=== PATIENT | female | born 1995 | race African-American/Black ===

== ENCOUNTER 2017-06-08 13:10 | Emergency (ER) | payer OTHER ==
[~2017-06-08] VITALS: Ht 165.1 cm; Wt 120.5 kg
[~2017-06-08 13:10] MED LIST: BACTRIM,SEPT1 TABLET PO; CONCERTA18 MG PO; CONCERTA27 MG PO; DEPO-PROVER150 MG/ML IM; DEPO-PROVERA; HYDROCHLOROTH12.5 M3 PO; MOTRIN400 MG PO; NAPROSYN500 MG PO
[2017-06-08 14:37] LABS: ADD MIUA? YES; BILIRUBIN NEGATIVE; BLOOD NEGATIVE; COLOR YELLOW ((YELLOW)); GLUCOSE (STRIP) NEGATIVE; KETONES NEGATIVE; LEUKOCYTES NEGATIVE; NITRITE NEGATIVE; PROTEIN (STRIP) NEGATIVE
[2017-06-08 14:59] LABS: BACTERIA NONE SEEN /HPF; EPITHELIAL CELLS RARE /HPF; MUCUS NONE SEEN /LPF; RED BLOOD CELLS 0-5 /HPF (0-5); UCUL ADDED? NO; WHITE BLOOD CELLS 0-5 /HPF (0-5)
[2017-06-08 14:59] LABS: HEMATOCRIT 37.3 % (36.0-46.0); MCH 27.9 PG (29.0-34.0); MCHC 32.4 G/DL (30.0-36.0); MCV 86.1 FL (83-99); MEAN PLAT.VOLUME 11.2 uM^3 (9.5-12.4); PLATELET COUNT 274 K/uL (156-360); RBC DIS.WIDTH-CV 12.1 % (11.8-14.6); RBC DIS.WIDTH-SD 38.1 % (39-53); RED BLOOD COUNT 4.33 M/uL (3.80-5.20); WHITE BLOOD COUNT 8.2 K/uL (4.1-10.2)
[2017-06-08 15:05] LABS: CHLORIDE 109 mEq/L (99-109); POTASSIUM 3.6 mEq/L (3.7-5.4); SODIUM 142 mEq/L (136-147)
[2017-06-08 15:08] LABS: GLUCOSE 82 mg/dL (70-99)
[2017-06-08 15:09] LABS: ANION GAP 11 MEQ/L (2-14)
[2017-06-08 15:10] LABS: TOTAL BILIRUBIN 0.4 mg/dL (0.0-1.0)
[2017-06-08 15:11] LABS: ALKALINE PHOSPHATASE 79 IU/L (3-129); GFR ESTIMATE (CALCULATED) > 59 mL/min/
[2017-06-08 15:12] LABS: UREA NITROGEN (BUN) 8 mg/dL (9-23)
[2017-06-08 15:22] LABS: QUANTITATIVE HCG < 4.0 MIU/ML
[2017-06-08] MEDS ORDERED: MIRALAX119 GM PO (16:58)
[2017-06-08] MEDS ORDERED: NEXIUM40 MG PO (16:58)
[2017-06-08] MEDS ORDERED: ZOFRAN ODT4 MG PO (16:58)
[2017-06-08 17:06] VITALS: BP 113/80
== END 2017-06-08 17:13 | disposition home or self-care (01) ==
LOC: EME 13:10
DX: K21.9 Gastro-esophageal reflux disease without esophagitis (principal); K59.00 Constipation, unspecified; N91.2 Amenorrhea, unspecified; R11.2 Nausea with vomiting, unspecified; F17.200 Nicotine dependence, unspecified, uncomplicated
CPT/HCPCS: 80053; 81003; 84702; 85027; 99281; 99284

== ENCOUNTER 2017-06-30 08:13 | Emergency (ER) | payer OTHER ==
[~2017-06-30] VITALS: Ht 165.1 cm; Wt 121.3 kg
[~2017-06-30 08:13] MED LIST changes: +MIRALAX119 GM PO; +NEXIUM40 MG PO; +ZOFRAN ODT4 MG PO
[2017-06-30 09:07] LABS: HEMATOCRIT 38.5 % (36.0-46.0); MCH 28.3 PG (29.0-34.0); MCHC 32.7 G/DL (30.0-36.0); MCV 86.5 FL (83-99); MEAN PLAT.VOLUME 11.1 uM^3 (9.5-12.4); PLATELET COUNT 282 K/uL (156-360); RBC DIS.WIDTH-CV 11.9 % (11.8-14.6); RBC DIS.WIDTH-SD 38.3 % (39-53); RED BLOOD COUNT 4.45 M/uL (3.80-5.20); WHITE BLOOD COUNT 7.1 K/uL (4.1-10.2)
[2017-06-30 09:15] LABS: CHLORIDE 109 mEq/L (99-109); SODIUM 140 mEq/L (136-147)
[2017-06-30 09:19] LABS: ANION GAP 7 MEQ/L (2-14)
[2017-06-30 09:20] LABS: TOTAL BILIRUBIN 0.4 mg/dL (0.0-1.0)
[2017-06-30 09:21] LABS: ALKALINE PHOSPHATASE 83 IU/L (3-129); GFR ESTIMATE (CALCULATED) > 59 mL/min/
[2017-06-30 09:22] LABS: UREA NITROGEN (BUN) 9 mg/dL (9-23)
[2017-06-30 09:25] LABS: LIPASE 10 U/L (1.0-51.0)
[2017-06-30 09:27] LABS: GLUCOSE 100 mg/dL (70-99)
[2017-06-30 09:30] LABS: QUANTITATIVE HCG < 4.0 MIU/ML
[2017-06-30] MEDS ORDERED: COLACE100 MG PO (09:50)
[2017-06-30 10:34] LABS: ADD MIUA? YES; BILIRUBIN NEGATIVE; BLOOD NEGATIVE; COLOR YELLOW ((YELLOW)); GLUCOSE (STRIP) NEGATIVE; KETONES NEGATIVE; LEUKOCYTES NEGATIVE; NITRITE NEGATIVE; PROTEIN (STRIP) NEGATIVE; SPECIFIC GRAVITY 1.013 (1.000-1.030); UROBILINOGEN 0.2 MG/DL (0.2-1.0)
[2017-06-30 10:36] LABS: BACTERIA RARE /HPF; EPITHELIAL CELLS 1+ /HPF; MUCUS TRACE /LPF; RED BLOOD CELLS 0-5 /HPF (0-5); UCUL ADDED? NO; WHITE BLOOD CELLS 0-5 /HPF (0-5)
[2017-06-30 10:57] VITALS: BP 120/79
== END 2017-06-30 11:01 | disposition home or self-care (01) ==
LOC: EME 08:13
PROVIDERS: Nurse Practitioner Family
DX: R10.13 Epigastric pain (principal); K59.00 Constipation, unspecified; K21.9 Gastro-esophageal reflux disease without esophagitis; F90.9 Attention-deficit hyperactivity disorder, unspecified type; F17.200 Nicotine dependence, unspecified, uncomplicated
CPT/HCPCS: 74000; 80053; 81003; 83690; 84702; 85027; 99281; 99284

== ENCOUNTER 2017-09-05 21:58 | Emergency (ER) | payer OTHER ==
[~2017-09-05] VITALS: Ht 165.1 cm; Wt 98.1 kg
[~2017-09-05 21:58] MED LIST changes: +COLACE100 MG PO
[2017-09-06 03:04] VITALS: BP 110/60
== END 2017-09-06 03:05 | disposition home or self-care (01) ==
LOC: EME → EDBD 21:58 → EME 21:58
DX: R60.0 Localized edema (principal); R59.0 Localized enlarged lymph nodes; M79.605 Pain in left leg; F17.200 Nicotine dependence, unspecified, uncomplicated; F90.9 Attention-deficit hyperactivity disorder, unspecified type
CPT/HCPCS: 93971; 99281; 99285

== ENCOUNTER 2017-11-16 01:13 | Emergency (ER) | payer OTHER ==
[~2017-11-16] VITALS: Ht 165.1 cm; Wt 126.4 kg
[2017-11-16] MEDS ORDERED: NORCO 5/3251 TABLET PO (03:21)
[2017-11-16] MEDS ORDERED: PEN-VEE K,VEET500 MG PO (03:21)
[2017-11-16 04:27] VITALS: BP 142/88
== END 2017-11-16 04:27 | disposition home or self-care (01) ==
LOC: EME 01:13
DX: K08.89 Other specified disorders of teeth and supporting structures (principal); F17.200 Nicotine dependence, unspecified, uncomplicated
CPT/HCPCS: 99281; 99284